=== PATIENT | female | born 1990 | race African-American/Black ===

== ENCOUNTER 2019-06-11 06:19 | Emergency (ER) | payer SELFPAY ==
[2019-06-11 07:43] LABS: APPEARANCE,URINE SLIGHTLY-CLOUDY; BILIRUBIN,URINE NEGATIVE (NEGATIVE); COLOR,URINE YELLOW; GLUCOSE, URINE >=500 mg/dL (NEGATIVE); KETONES,URINE NEGATIVE (NEGATIVE); LEUKOCYTE ESTERASE,URINE NEGATIVE (NEGATIVE); NITRITE,URINE NEGATIVE (NEGATIVE); PROTEIN,URINE NEGATIVE (NEGATIVE); UROBILINOGEN,URINE NEGATIVE mg/dL (<2.0)
[2019-06-11 08:02] LABS: ABSOLUTE BASOPHILS # (AUTO) 0.1 10^3/uL (0.0-0.2); ABSOLUTE EOSINOPHILS # (AUTO) 0.4 10^3/uL (0.0-0.6); ABSOLUTE LYMPHOCYTES (AUTO) 3.9 10^3/uL (0.5-4.7); ABSOLUTE MONOCYTES (AUTO) 0.7 10^3/uL (0.1-1.4); ABSOLUTE NEUT (AUTO) 9.1 10^3/uL (1.7-8.2); BASOPHILS % (AUTO) 0.8 % (0-2); EOSINOPHILS % (AUTO) 2.8 % (0-6); HEMATOCRIT 42.9 % (36.0-47.0); HEMOGLOBIN 14.4 g/dL (12.0-15.5); LYMPHOCYTES % (AUTO) 27.5 % (13-45); MEAN CORPUSCULAR HEMOGLOBIN 28.8 pg (27.0-33.4); MEAN CORPUSCULAR HGB CONC 33.6 g/dL (32.0-36.0); MEAN CORPUSCULAR VOLUME 86 fl (80-97); MONOCYTES % (AUTO) 5.2 % (3-13); PLATELET COUNT 212 10^3/uL (150-450); RED CELL DISTRIBUTION WIDTH 13.1 % (11.5-14.0); SEGMENTED NEUTROPHILS % (AUTO) 63.7 % (42-78); TOTAL CELLS COUNTED % (AUTO) 100 %; WHITE BLOOD COUNT 14.3 10^3/uL (4.0-10.5)
[2019-06-11 08:21] LABS: ALKALINE PHOSPHATASE 107 U/L (38-126); ANION GAP 12 (5-19); ASPARTATE AMINO TRANSFERASE 15 U/L (14-36); BILIRUBIN,DIRECT 0.2 mg/dL (0.0-0.4); BILIRUBIN,TOTAL 0.3 mg/dL (0.2-1.3); BLOOD UREA NITROGEN 13 mg/dL (7-20); CALCIUM 9.9 mg/dL (8.4-10.2); CARBON DIOXIDE 22 mmol/L (22-30); CHLORIDE 103 mmol/L (98-107); GLUCOSE 289 mg/dL (75-110); POTASSIUM 4.5 mmol/L (3.6-5.0); TOTAL PROTEIN 7.4 g/dL (6.3-8.2)
[2019-06-11] MEDS ORDERED: NORMAL SALINE 1000 ML 1,000 ML IV ONE (09:13)
[2019-06-11] MEDS ORDERED: ONDANSETRON HCL INJ/PF 4 MG/2 ML SDV IV ONE (09:50)
--- NOTE | 2019-06-11 10:52 | RADIOLOGY REPORT (SQ) ---
EXAM DESCRIPTION: U/S ABDOMEN LTD W/DOPPLER COMPLETED DATE/TIME: 06/11/2019 10:22 am REASON FOR STUDY: RUQ pain, nausea COMPARISON: None. TECHNIQUE: Dynamic and static grayscale images acquired of the abdomen and recorded on PACS. Leenao johnny selected color Doppler and spectral images recorded. LIMITATIONS: None. FINDINGS: PANCREAS: No masses. Visualized pancreatic duct normal caliber. LIVER: No masses. Increased echogenicity. Hepatomegaly. LIVER VASCULATURE: Normal directional flow of the main portal vein and hepatic veins. GALLBLADDER: A large gallstone is present. There is no wall thickening or pericholecystic fluid. ULTRASOUND-DETECTED FAN'S SIGN: Negative. INTRAHEPATIC DUCTS AND COMMON DUCT: CBD and intrahepatic ducts normal caliber. No filling defects. INFERIOR VENA CAVA: Not imaged. AORTA: No aneurysm. RIGHT KIDNEY: Normal size, 13.3 cm. Normal echogenicity. No solid or suspicious masses. No hydroneph rosis. No calcifications. PERITONEAL AND RIGHT PLEURAL SPACE: No ascites or effusions. OTHER: No other significant findings. IMPRESSION: Hepatomegaly with hepatic steatosis. Cholelithiasis. TECHNICAL DOCUMENTATION: JOB ID: [id number] [employer]- All Rights Reserved Reading location - IP/workstation name: [email or web address]
[2019-06-11 11:03] VITALS: BP 126/90
--- NOTE | 2019-06-11 11:03 | ER Document Report ---
ED General - General Chief Complaint: Abdominal Pain Stated Complaint: ABDOMINAL PAINS Time Seen by Provider: 06/11/19 09:10 Notes: 29-year-old female presents with epigastric abdominal pain and diarrhea for the past 3 days. Associated nausea/vomiting/diarrhea. Patient is diabetic and states she is also been having increased urination. Patient states she has had similar symptoms in the past but they only lasted approximately 24 hours. P atient denies fever, chills, dysuria, blood in stool or emesis. - Related Data Allergies/Adverse Reactions: sulfamethoxazole [From Bactrim] Adverse Reaction (Verified 06/11/19 06:43) tramadol [Tramadol] Adverse Reaction (Verified 06/11/19 06:43) trimethoprim [From Bactrim] Adverse Reaction (Verified 06/11/19 06:43) Home Medications: METFORMIN. LISINOPRIL. LOPRESSOR. GLIPISIDE Past Medical History - Social History Smoking Status: Current Every Day Smoker Frequency of alcohol use: None Drug Abuse: None Family History: Reviewed & Not Pertinent Patient has suicidal ideation: No Patient has homicidal ideation: No - Past Medical History Cardiac Medical History: Reports: Hx Hypertension Endocrine Medical History: Reports: Hx Diabetes Mellitus Type 2 Review of Systems - Review of Systems Notes: Constitutional: Negative for fever. HENT: Negative for sore throat. Eyes: Negative for visual changes. Cardiovascular: Negative for chest pain. Respiratory: Negative for shortness of breath. Gastrointestinal: Positive for abdominal pain, vomiting or diarrhea. Genitourinary: Negative for dysuria. Musculoskeletal: Negative for back pain. Skin: Negative for rash. Neurological: Negative for headaches, weakness or numbness. 10 point ROS negative except as marked above and in HPI. Physical Exam - Vital signs Vitals: Temp Pulse Resp BP Pulse Ox 98.1 F 103 H 22 H 122/86 H 96 06/11/19 06:34 06/11/19 06:34 06/11/19 06:34 06/11/19 06:34 06/11/19 06:34 - Notes Notes: GENERAL: Well-appearing, well-nourished and in no acute distress. HEAD: Atraumatic, normocephalic. EYES: Extraocular movements intact, sclera anicteric, conjunctiva are normal. NECK: Normal range of motion, supple without lymphadenopathy or JVD. LUNGS: Breath sounds clear to auscultation bilaterally and equal. No wheezes rales or rhonchi. HEART: Regular rate and rhythm without murmurs, rubs or gallops. ABDOMEN: Soft, tenderness to right upper quadrant. No guarding, no rebound. No masses appreciated. EXTREMITIES: Normal range of motion, no pitting or edema. No clubbing or cyanosis. NEUROLOGICAL: Cranial nerves II through XII grossly intact. Normal speech, normal gait. PSYCH: Normal mood, normal affect. SKIN: Warm, Dry, normal turgor, no rashes or lesions noted. Course - Re-evaluation Re-evalutation: 06/11/19 nontoxic, well-appearing 29-year-old female presents with epigastric pain with nausea/vomiting/diarrhea. Patient also has increased urination. Patient is afebrile. Work-up thus far shows a mild leukocytosis. CMP shows increased glucose. Due to right upper quadrant pain on exam ultrasound was ordered. Patient offered pain medications however declines at this time. Zofran was ordered. 06/11/19 11:03 06/11/19 11:06 RN states pt wants to go home. - Vital Signs Vital signs: Temp Pulse Resp BP Pulse Ox 98.3 F 92 18 126/90 H 98 06/11/19 11:02 06/11/19 11:02 06/11/19 11:02 06/11/19 11:02 06/11/19 11:02 - Laboratory Result Diagrams: 06/11/19 07:45 06/11/19 07:45 Laboratory results interpreted by me: 06/11/19 06/11/19 06/11/19 06:52 07:00 07:45 WBC 14.3 H Absolute Neuts (auto) 9.1 H Creatinine Glucose POC Glucose 280 H Urine Glucose (UA) >=500 H 06/11/19 07:45 WBC Absolute Neuts (auto) Creatinine 0.30 L Glucose 289 H POC Glucose Urine Glucose (UA) Discharge - Discharge Clinical Impression: Nausea vomiting and diarrhea Cholelithiasis Qualifiers: Cholelithiasis location: gallbladder Cholecystitis presence: without cholecystitis Biliary obstruction: without biliary obstruction Qualified Code(s): K80.20 - Calculus of gallbladder without cholecystitis without obstruction Abdominal pain Qualifiers: Abdominal location: unspecified location Qualified Code(s): R10.9 - Unspecified abdominal pain Condition: Stable Disposition: HOME, SELF-CARE Instructions: Gallbladder Disease ([facility]), Low-Fat Diet ([facility]), Antinausea Medication ([facility]) Additional Instructions: Your ultrasound showed gallstones which may be the cause of your pain. Your work-up today does not indicate that you are have an infection in your gallbladder. Please follow-up with your primary care doctor and surgeon listed in 1 week. Please take Zofran as prescribed. Return to ER for any worsening symptoms, including worsening pain, vomiting not controlled by medication, fever, radiation of pain, chest pain, shortness of breath, worsening diarrhea, blood in your vomit or stool, or any other symptoms that are concerning to you. Forms: Return to Work Referrals: ABDULAZIZ CUEVAS MD [ACTIVE STAFF] - Follow up in 3-5 days [facility] [Provider Group] - Follow up in 3-5 days
[2019-06-11] MEDS ORDERED: ONDANSETRON ODT 4 MG TAB (6 TAB/ER DISP) PO PRN (11:09)
== END 2019-06-11 11:24 | disposition home or self-care (01) ==
LOC: ER 06:19
DX: K80.20 Calculus of gallbladder without cholecystitis without obstruction (principal); R11.2 Nausea with vomiting, unspecified; R19.7 Diarrhea, unspecified; R10.9 Unspecified abdominal pain; R10.13 Epigastric pain; F17.200 Nicotine dependence, unspecified, uncomplicated; I10 Essential (primary) hypertension; E11.9 Type 2 diabetes mellitus without complications
CPT/HCPCS: 99284; 96361; 96374; 36415; 82962; 83690; 85025; 81025; 80053; 81001; 76705; 93976; J2405; J7030

== ENCOUNTER 2019-06-15 06:40 | Emergency (ER) | payer SELFPAY ==
[2019-06-15 07:02] VITALS: BP 135/91
[2019-06-15 07:52] LABS: APPEARANCE,URINE CLEAR; BILIRUBIN,URINE NEGATIVE (NEGATIVE); COLOR,URINE YELLOW; GLUCOSE, URINE >=500 mg/dL (NEGATIVE); KETONES,URINE NEGATIVE (NEGATIVE); LEUKOCYTE ESTERASE,URINE NEGATIVE (NEGATIVE); NITRITE,URINE NEGATIVE (NEGATIVE); PROTEIN,URINE NEGATIVE (NEGATIVE); URINE SPECIFIC GRAVITY 1.026; UROBILINOGEN,URINE NEGATIVE mg/dL (<2.0)
[2019-06-15 08:55] LABS: ABSOLUTE BASOPHILS # (AUTO) 0.1 10^3/uL (0.0-0.2); ABSOLUTE EOSINOPHILS # (AUTO) 0.4 10^3/uL (0.0-0.6); ABSOLUTE LYMPHOCYTES (AUTO) 3.5 10^3/uL (0.5-4.7); ABSOLUTE MONOCYTES (AUTO) 0.5 10^3/uL (0.1-1.4); BASOPHILS % (AUTO) 0.5 % (0-2); EOSINOPHILS % (AUTO) 3.4 % (0-6); HEMATOCRIT 42.8 % (36.0-47.0); HEMOGLOBIN 14.6 g/dL (12.0-15.5); LYMPHOCYTES % (AUTO) 33.3 % (13-45); MEAN CORPUSCULAR HEMOGLOBIN 29.5 pg (27.0-33.4); MEAN CORPUSCULAR HGB CONC 34.1 g/dL (32.0-36.0); MEAN CORPUSCULAR VOLUME 86 fl (80-97); MONOCYTES % (AUTO) 5.1 % (3-13); PLATELET COUNT 212 10^3/uL (150-450); RED BLOOD COUNT 4.95 10^6/uL (3.72-5.28); RED CELL DISTRIBUTION WIDTH 13.3 % (11.5-14.0); SEGMENTED NEUTROPHILS % (AUTO) 57.7 % (42-78); TOTAL CELLS COUNTED % (AUTO) 100 %; WHITE BLOOD COUNT 10.4 10^3/uL (4.0-10.5)
[2019-06-15 09:09] LABS: ALBUMIN 4.1 g/dL (3.5-5.0); ALKALINE PHOSPHATASE 118 U/L (38-126); ANION GAP 14 (5-19); ASPARTATE AMINO TRANSFERASE 14 U/L (14-36); BILIRUBIN,DIRECT 0.4 mg/dL (0.0-0.4); BILIRUBIN,TOTAL 0.6 mg/dL (0.2-1.3); BLOOD UREA NITROGEN 10 mg/dL (7-20); CALCIUM 9.5 mg/dL (8.4-10.2); CARBON DIOXIDE 22 mmol/L (22-30); CHLORIDE 101 mmol/L (98-107); GLUCOSE 294 mg/dL (75-110); POTASSIUM 4.5 mmol/L (3.6-5.0); TOTAL PROTEIN 7.7 g/dL (6.3-8.2)
--- NOTE | 2019-06-15 11:01 | ER Document Report ---
ED Medical Screen (RME) - General Chief Complaint: Abdominal Pain Stated Complaint: LOWER ABDOMINAL/BACK PAIN - [facility] Notes: 06/15/19 11:01 Patient is a 29-year-old female prescription who presents complaining of intermittent right upper quadrant pain for the past week. No fever. I have treated and performed a rapid initial assessment of this patient. A comprehensive ED assessment and evaluation of the patient, analysis of test results and completion of medical decision making process will be conducted by additional ED providers. PHYSICAL EXAMINATION: GENERAL: Well-appearing, well-nourished and in no acute distress. A&Ox4. Answers questions appropriately. Abd: + tenderness RUQ. - Related Data Allergies/Adverse Reactions: sulfamethoxazole [From Bactrim] Adverse Reaction (Verified 06/15/19 10:00) tramadol [Tramadol] Adverse Reaction (Verified 06/15/19 10:00) trimethoprim [From Bactrim] Adverse Reaction (Verified 06/15/19 10:00) Home Medications: Metaform. Lisinopril. Metropolol Past Medical History - Social History Frequency of alcohol use: None Drug Abuse: None - Past Medical History Cardiac Medical History: Reports: Hx Hypertension Endocrine Medical History: Reports: Hx Diabetes Mellitus Type 2 Physical Exam - Vital signs Vitals: Temp Pulse Resp BP Pulse Ox 98.9 F 95 16 135/91 H 99 06/15/19 06:59 06/15/19 06:59 06/15/19 06:59 06/15/19 06:59 06/15/19 06:59 Course - Vital Signs Vital signs: Temp Pulse Resp BP Pulse Ox 98.9 F 95 16 135/91 H 99 06/15/19 06:59 06/15/19 06:59 06/15/19 06:59 06/15/19 06:59 06/15/19 06:59 - Laboratory Result Diagrams: 06/15/19 08:11 06/15/19 08:11 Laboratory results interpreted by me: 06/15/19 06/15/19 07:30 08:11 Creatinine 0.36 L Glucose 294 H Urine Glucose (UA) >=500 H
--- NOTE | 2019-06-15 12:13 | RADIOLOGY REPORT (SQ) ---
EXAM DESCRIPTION: U/S ABDOMEN LIMITED W/O DOP COMPLETED DATE/TIME: 06/15/2019 11:47 am REASON FOR STUDY: RUQ pain COMPARISON: 06/11/2019 right upper quadrant ultrasound TECHNIQUE: Dynamic and static grayscale images acquired of the abdomen and recorded on PACS. Leenao johnny selected color Doppler and spectral images recorded. LIMITATIONS: Body habitus, midline bowel gas FINDINGS: PANCREAS: Midline pancreas unremarkable LIVER: No masses. Echogenic liver from fatty infiltration. LIVER VASCULATURE: Normal directional flow of the main portal vein and hepatic veins. GALLBLADDER: 2.5 cm gallstone in the gallbladder fundus. Normal wall thickness. No pericholecystic fl uid. ULTRASOUND-DETECTED CARTAGENA'S SIGN: Negative. INTRAHEPATIC DUCTS AND COMMON DUCT: CBD and intrahepatic ducts normal caliber. No filling defects. INFERIOR VENA CAVA: Normal flow. AORTA: No aneurysm. RIGHT KIDNEY: Normal size. Normal echogenicity. No solid or suspicious masses. No hydronephrosis. No calcifications. PERITONEAL AND RIGHT PLEURAL SPACE: No ascites or effusions. OTHER: No other significant findings. IMPRESSION: Fatty liver 2.5 cm gallstone without gallbladder wall thickening or pericholecystic fluid. Negative sonographic Cartagena's sign TECHNICAL DOCUMENTATION: JOB ID: [id number] [facility]- All Rights Reserved Reading location - IP/workstation name: [email or web address]
[2019-06-15] MEDS ORDERED: ONDANSETRON HCL INJ/PF 4 MG/2 ML SDV IV ONE (12:33)
[2019-06-15] MEDS ORDERED: FENTANYL CITRATE INJ/PF 100 MCG/2 ML AMPUL IV ONE (12:33)
[2019-06-15] MEDS ORDERED: NORMAL SALINE 1000 ML 1,000 ML IV ONE (12:35)
--- NOTE | 2019-06-15 12:35 | ER Document Report ---
ED GI/ - General Chief Complaint: Abdominal Pain Stated Complaint: LOWER ABDOMINAL/BACK PAIN Time Seen by Provider: 06/15/19 11:59 Notes: Patient is a 29-year-old female who comes in for right upper quadrant pain. Patient was seen 2 days ago and diagnosed with gallstones. She has modified her diet but states that her pain is persisting and is now going into her back. Denies fever. Has been nauseated. Denies diarrhea. No cough. No other concerns. No difficulty with urination. - Related Data Allergies/Adverse Reactions: sulfamethoxazole [From Bactrim] Adverse Reaction (Verified 06/15/19 10:00) tramadol [Tramadol] Adverse Reaction (Verified 06/15/19 10:00) trimethoprim [From Bactrim] Adverse Reaction (Verified 06/15/19 10:00) Home Medications: Metaform. Lisinopril. Metropolol Past Medical History - Social History Smoking Status: Current Some Day Smoker Frequency of alcohol use: None Drug Abuse: None Family History: Reviewed & Not Pertinent Patient has suicidal ideation: No Patient has homicidal ideation: No - Past Medical History Cardiac Medical History: Reports: Hx Hypertension Endocrine Medical History: Reports: Hx Diabetes Mellitus Type 2 Review of Systems - Review of Systems -: Yes All other systems reviewed and negative Physical Exam - Vital signs Vitals: Temp Pulse Resp BP Pulse Ox 98.9 F 95 16 135/91 H 99 06/15/19 06:59 06/15/19 06:59 06/15/19 06:59 06/15/19 06:59 06/15/19 06:59 Interpretation: Normal - General General appearance: Appears well, Alert - HEENT Head: Normocephalic, Atraumatic Eyes: Normal Pupils: PERRL - Respiratory Respiratory status: No respiratory distress Chest status: Nontender Breath sounds: Normal Chest palpation: Normal - Cardiovascular Rhythm: Regular Heart sounds: Normal auscultation Murmur: No - Abdominal Inspection: Normal Distension: No distension Bowel sounds: Normal Tenderness: Tender, Cartagena's sign Organomegaly: No organomegaly - Back Back: Normal, Nontender - Extremities General upper extremity: Normal inspection, Nontender, Normal color, Normal ROM, Normal temperature General lower extremity: Normal inspection, Nontender, Normal color, Normal ROM, Normal temperature, Normal weight bearing. No: Catrina's sign - Neurological Neuro grossly intact: Yes Cognition: Normal Orientation: AAOx4 [place] Coma Scale Eye Opening: Spontaneous Kindra Coma Scale Verbal: Oriented [place] Coma Scale Motor: Obeys Commands Kindra Coma Scale Total: 15 Speech: Normal Motor strength normal: LUE, RUE, LLE, RLE Sensory: Normal - Psychological Associated symptoms: Normal affect, Normal mood - Skin Skin Temperature: Warm Skin Moisture: Dry Skin Color: Normal Course - Re-evaluation Re-evalutation: 06/15/19 12:[address] rosario - Vital Signs Vital signs: Temp Pulse Resp BP Pulse Ox 98.9 F 95 16 135/91 H 99 06/15/19 06:59 06/15/19 06:59 06/15/19 06:59 06/15/19 06:59 06/15/19 06:59 12:00 Patient with normal blood work. Gallstones on ultrasound but no evidence for cholecystitis. Given patient's pain and nausea., Surgeon was called and will come see the patient to evaluate for cholecystectomy. 06/15/19 12:30 Informed by nursing staff the patient does not want to wait and is going to go to [facility] as instructed by her mother. Given copy of blood work and ultrasound. Patient will sign out AGAINST MEDICAL ADVICE. - Laboratory Result Diagrams: 06/15/19 08:11 06/15/19 08:11 Laboratory results interpreted by me: 06/15/19 06/15/19 07:30 08:11 Creatinine 0.36 L Glucose 294 H Urine Glucose (UA) >=500 H - Diagnostic Test Radiology reviewed: Reports reviewed Discharge - Discharge Clinical Impression: Cholelithiasis Qualifiers: Cholelithiasis location: gallbladder Cholecystitis presence: without cholecystitis Biliary obstruction: without biliary obstruction Qualified Code(s): K80.20 - Calculus of gallbladder without cholecystitis without o bstruction Abdominal pain Qualifiers: Abdominal location: right upper quadrant Qualified Code(s): R10.11 - Right upper quadrant pain Condition: Stable Disposition: AGAINST MEDICAL ADVICE Instructions: Gallbladder Disease ([facility]) Additional Instructions: Please return immediately if you have further concerns or problems.
== END 2019-06-15 12:55 | disposition left against medical advice (07) ==
LOC: ER 06:40
DX: K80.20 Calculus of gallbladder without cholecystitis without obstruction (principal); R10.11 Right upper quadrant pain; M54.9 Dorsalgia, unspecified; R11.0 Nausea; I10 Essential (primary) hypertension; E11.9 Type 2 diabetes mellitus without complications; F17.200 Nicotine dependence, unspecified, uncomplicated; Z53.29 Procedure and treatment not carried out because of patient's decision for other reasons
CPT/HCPCS: 36415; 76705; 80053; 81001; 81025; 83690; 85025; 99284